=== PATIENT | female | born 1970 | race Caucasian/White ===

== ENCOUNTER 2019-10-01 10:56 | Emergency (ER) | payer MEDICAID ==
[~2019-10-01 10:56] MED LIST: ALBU18HF2 INH; ALBU8.5H8 IH; AZIT250T13 PO; BACL10TA PO; CYCL-1 PO; GUAI120015 PO; HYDR-4383 PO; IBUP-1986 PO; ORPH100T2 PO; SERT-153 PO
--- NOTE | 2019-10-01 12:27 | NUR ---
NIL x3 at [phone]
== END 2019-10-01 12:56 | disposition left against medical advice (07) ==
LOC: ER 10:59
DX: R10.9 Unspecified abdominal pain (principal); Z53.21 Procedure and treatment not carried out due to patient leaving prior to being seen by health care provider

== ENCOUNTER 2019-10-03 08:28 | Emergency (ER) | payer MEDICAID ==
[~2019-10-03] VITALS: Ht 157.5 cm; Wt 86.8 kg
[2019-10-03 08:35] VITALS: BP 145/100
[2019-10-03] MEDS ORDERED: LIDOcaine 5% patch TP SCH (09:18)
[2019-10-03] MEDS ORDERED: LIDO700A32 TOP (09:18)
[2019-10-03] MEDS ORDERED: ACET-1025 PO (09:18)
== END 2019-10-03 09:31 | disposition home or self-care (01) ==
LOC: ER 08:28
DX: S46.811A Strain of other muscles, fascia and tendons at shoulder and upper arm level, right arm, initial encounter (principal); G89.29 Other chronic pain; F41.9 Anxiety disorder, unspecified; F32.9 Major depressive disorder, single episode, unspecified; Z86.14 Personal history of Methicillin resistant Staphylococcus aureus infection; Z88.0 Allergy status to penicillin; Z88.8 Allergy status to other drugs, medicaments and biological substances; Z79.899 Other long term (current) drug therapy; Y04.8XXA Assault by other bodily force, initial encounter; Y93.89 Activity, other specified; Y92.89 Other specified places as the place of occurrence of the external cause; Y99.8 Other external cause status
CPT/HCPCS: 99283

== ENCOUNTER 2019-12-09 05:35 | Emergency (ER) | payer MEDICAID ==
[~2019-12-09] VITALS: Ht 157.5 cm; Wt 85.0 kg
[~2019-12-09 05:35] MED LIST changes: +ACET-1025 PO; +LIDO700A32 TOP
[2019-12-09] MEDS ORDERED: HYDROcodone/acetaminophen 5mg/325mg tablet PO ONE (06:30)
[2019-12-09] MEDS ORDERED: HYDR-3965 PO (07:11)
[2019-12-09 07:24] VITALS: BP 163/123
== END 2019-12-09 07:25 | disposition home or self-care (01) ==
LOC: ER 05:36
DX: S22.42XA Multiple fractures of ribs, left side, initial encounter for closed fracture (principal); G89.29 Other chronic pain; F41.9 Anxiety disorder, unspecified; F32.9 Major depressive disorder, single episode, unspecified; Z86.14 Personal history of Methicillin resistant Staphylococcus aureus infection; F12.90 Cannabis use, unspecified, uncomplicated; Z98.51 Tubal ligation status; Z98.890 Other specified postprocedural states; Z88.0 Allergy status to penicillin; Z88.6 Allergy status to analgesic agent; Z79.899 Other long term (current) drug therapy; X58.XXXA Exposure to other specified factors, initial encounter; Y93.89 Activity, other specified; Y92.89 Other specified places as the place of occurrence of the external cause; Y99.8 Other external cause status
CPT/HCPCS: 71101; 99283

== ENCOUNTER 2019-12-27 11:59 | Emergency (ER) | payer MEDICAID ==
[~2019-12-27] VITALS: Ht 157.5 cm; Wt 87.7 kg
[2019-12-27] MEDS ORDERED: APIX2.5T PO (12:49)
[2019-12-27] MEDS ORDERED: HYDROcodone/acetaminophen 5mg/325mg tablet PO ONE (12:50)
[2019-12-27] MEDS ORDERED: ketorolac trometh inj. 60 MG/2 ML VIAL IM ONE (12:50)
[2019-12-27] MEDS ORDERED: ACET-3067 PO (13:11)
[2019-12-27] MEDS ORDERED: CYCL-1 PO (13:11)
[2019-12-27 13:18] VITALS: BP 136/94
== END 2019-12-27 13:12 | disposition home or self-care (01) ==
LOC: ER 11:59
DX: R07.81 Pleurodynia (principal); M54.2 Cervicalgia; I48.91 Unspecified atrial fibrillation; G89.29 Other chronic pain; F41.9 Anxiety disorder, unspecified; F32.9 Major depressive disorder, single episode, unspecified; F12.90 Cannabis use, unspecified, uncomplicated; Z98.51 Tubal ligation status; Z98.890 Other specified postprocedural states; Z88.6 Allergy status to analgesic agent; Z88.0 Allergy status to penicillin; Z79.01 Long term (current) use of anticoagulants; Z79.2 Long term (current) use of antibiotics; Z79.899 Other long term (current) drug therapy
CPT/HCPCS: 96372; 99283; J1885

== ENCOUNTER 2020-01-23 06:22 | Emergency (ER) | payer MEDICAID ==
[~2020-01-23] VITALS: Ht 157.5 cm; Wt 85.0 kg
[~2020-01-23 06:22] MED LIST changes: +APIX2.5T PO
[2020-01-23 07:10] LABS: BASOPHILS # (AUTO) 0.1 X10'3 (0-0.2); EOSINOPHILS # (AUTO) 0.1 X10'3 (0-0.9); EOSINOPHILS % (AUTO) 0.6 % (0-6); HEMATOCRIT 41.5 % (35.0-45.0); HEMOGLOBIN 13.5 g/dl (12.0-16.0); LYMPHOCYTES # (AUTO) 2.8 X10'3 (1.1-4.8); LYMPHOCYTES % (AUTO) 19.6 % (21-51); MEAN CORPUSCULAR HGB CONC 32.5 g/dL (33.0-36.5); MEAN CORPUSCULAR VOLUME 95.4 FL (78-98); MEAN PLATELET VOLUME 8.3 FL (7.4-10.4); MONOCYTES # (AUTO) 1.2 X10'3 (0-0.9); NEUTROPHILS # (AUTO) 10.3 X10'3 (1.8-7.7); NEUTROPHILS % (AUTO) 70.8 % (42-75); PLATELET COUNT 327 X10'3 (140-440); RED BLOOD COUNT 4.35 X10'6 (4.20-5.60); RED CELL DISTRIBUTION WIDTH 17.7 % (11.5-14.5); WHITE BLOOD COUNT 14.5 X10'3 (4.5-11.0)
[2020-01-23 07:12] LABS: CLARITY,URINE CLOUDY (Clear); COLOR,URINE YELLOW (Yellow); GLUCOSE, URINE NEGATIVE (Neg); KETONES,URINE TRACE mg/dl (Neg); LEUKOCYTE ESTERASE ,URINE NEGATIVE (Neg); NITRITES, URINE NEGATIVE (Neg); OCCULT BLOOD,URINE NEGATIVE (Neg); PROTEIN,URINE 30 mg/dl (Neg); UROBILINOGEN,URINE >=8.0 E.U/dL (0.2-1.0)
[2020-01-23 07:13] LABS: UA COLLECTION TYPE CLN CATCH MIDSTREAM
[2020-01-23 07:15] LABS: URINE HCG NEGATIVE (NEG)
[2020-01-23 07:30] LABS: RBC,URINE 0-2 /HPF (0-2); WBC,URINE 0-4 /HPF (0-4)
[2020-01-23 07:30] LABS: ALANINE AMINOTRANSFERASE 76 U/L (12-78); ALBUMIN 1.6 G/DL (3.4-5.0); ANION GAP 8 (8-16); ASPARTATE AMINO TRANSFERASE 297 U/L (10-37); BILIRUBIN,TOTAL 5.4 MG/DL (0.1-1.0); BLOOD UREA NITROGEN 13 MG/DL (7-18); BUN/CREATININE RATIO 14.1 (6.6-38.0); CALCIUM 9.5 MG/DL (8.5-10.1); CHLORIDE 102 MMOL/L (99-107); CREATININE 0.92 MG/DL (0.40-0.90); GLUCOSE 93 MG/DL (70-104); LIPASE 164 U/L (73-393); SODIUM 138 MMOL/L (135-145); TOTAL CARBON DIOXIDE 27.8 MMOL/L (24-32); eGFR 65 ML/MIN
[2020-01-23 07:31] LABS: BACTERIA,URINE NONE SEEN /HPF (Neg); MUCUS STRANDS MODERATE /LPF (Neg); SQUAMOUS EPITHELIAL CELL,UR MODERATE /LPF (FEW)
[2020-01-23 07:35] LABS: POTASSIUM 3.7 MMOL/L (3.5-5.1)
[2020-01-23 07:45] LABS: ALBUMIN/GLOBULIN RATIO 0.2 (1.1-1.5); TOTAL PROTEIN 8.2 G/DL (6.4-8.2)
[2020-01-23 07:46] LABS: ALKALINE PHOSPHATASE 1101 IU/L (46-116)
[2020-01-23 08:13] LABS: ANISOCYTOSIS 1+; PLATELET ESTIMATE NORMAL; TOTAL CELLS COUNTED 100
[2020-01-23 08:14] LABS: POLYCHROMASIA 1+; STOMATOCYTES 2+
[2020-01-23] MEDS ORDERED: OXYC-658 PO (08:30)
[2020-01-23] MEDS ORDERED: FURO-150 PO (08:30)
[2020-01-23 08:47] VITALS: BP 140/90
== END 2020-01-23 08:47 | disposition home or self-care (01) ==
LOC: ER 06:22
DX: K74.60 Unspecified cirrhosis of liver (principal); R18.8 Other ascites; R10.9 Unspecified abdominal pain; R14.0 Abdominal distension (gaseous); I48.91 Unspecified atrial fibrillation; G89.29 Other chronic pain; F41.9 Anxiety disorder, unspecified; F32.9 Major depressive disorder, single episode, unspecified; F12.90 Cannabis use, unspecified, uncomplicated; Z86.14 Personal history of Methicillin resistant Staphylococcus aureus infection; Z98.51 Tubal ligation status; Z98.890 Other specified postprocedural states; Z88.6 Allergy status to analgesic agent; Z88.0 Allergy status to penicillin; Z79.2 Long term (current) use of antibiotics; Z79.899 Other long term (current) drug therapy
CPT/HCPCS: 36415; 80053; 81001; 81025; 83690; 85025; 99284

== ENCOUNTER 2020-02-14 12:16 | Inpatient (IN) | payer MEDICAID ==
[~2020-02-14] VITALS: Ht 157.5 cm; Wt 91.3 kg
[~2020-02-14 12:16] MED LIST changes: +FURO-150 PO; +OXYC-658 PO
[2020-02-14] MEDS ORDERED: normal saline 1000ML IV soln IVB ONE ×2 (12:30→13:55)
[2020-02-14 13:12] LABS: BASOPHILS # (AUTO) 0.1 X10'3 (0-0.2); BASOPHILS % (AUTO) 0.4 % (0-1); EOSINOPHILS # (AUTO) 0.1 X10'3 (0-0.9); EOSINOPHILS % (AUTO) 0.4 % (0-6); HEMATOCRIT 42.5 % (35.0-45.0); HEMOGLOBIN 13.8 g/dl (12.0-16.0); LYMPHOCYTES # (AUTO) 2.2 X10'3 (1.1-4.8); LYMPHOCYTES % (AUTO) 12.3 % (21-51); MEAN CORPUSCULAR HEMOGLOBIN 30.9 PG (27.0-31.0); MEAN CORPUSCULAR HGB CONC 32.5 g/dL (33.0-36.5); MEAN CORPUSCULAR VOLUME 95.2 FL (78-98); MONOCYTES # (AUTO) 1.1 X10'3 (0-0.9); MONOCYTES % (AUTO) 6.1 % (2-12); NEUTROPHILS # (AUTO) 14.4 X10'3 (1.8-7.7); NEUTROPHILS % (AUTO) 80.8 % (42-75); PLATELET COUNT 163 X10'3 (140-440); RED BLOOD COUNT 4.47 X10'6 (4.20-5.60); RED CELL DISTRIBUTION WIDTH 17.7 % (11.5-14.5); WHITE BLOOD COUNT 17.8 X10'3 (4.5-11.0)
[2020-02-14 13:29] LABS: ALANINE AMINOTRANSFERASE 61 U/L (12-78); ALBUMIN 1.1 G/DL (3.4-5.0); ALKALINE PHOSPHATASE 671 IU/L (46-116); ANION GAP 12 (8-16); BILIRUBIN,TOTAL 9.3 MG/DL (0.1-1.0); BLOOD UREA NITROGEN 59 MG/DL (7-18); BUN/CREATININE RATIO 33.1 (6.6-38.0); CHLORIDE 93 MMOL/L (99-107); CREATININE 1.78 MG/DL (0.40-0.90); ETHANOL < 0.010 GM/DL (0.0-0.010); GLUCOSE 71 MG/DL (70-104); LACTIC SEPSIS 2.9 MMOL/L (0.4-2.0); MAGNESIUM 2.7 MG/DL (1.5-2.4); SODIUM 130 MMOL/L (135-145); TOTAL CARBON DIOXIDE 24.6 MMOL/L (24-32); eGFR 30 ML/MIN
[2020-02-14 13:33] LABS: ALBUMIN/GLOBULIN RATIO 0.2 (1.1-1.5); ASPARTATE AMINO TRANSFERASE 272 U/L (10-37); POTASSIUM 4.7 MMOL/L (3.5-5.1); TOTAL PROTEIN 7.4 G/DL (6.4-8.2)
[2020-02-14] MEDS ORDERED: metroNIDAZOLE-Flagyl 750mg/NS 150 ML IV SCH (13:55)
[2020-02-14] MEDS ORDERED: lactulose 20gm/30ml cup PO ONE (13:55)
[2020-02-14] MEDS ORDERED: CefTRIAXone/D5W-Rocephin 1gm 50 ML IV ONE (13:55)
[2020-02-14] MEDS ORDERED: NO HOME MEDS (14:12)
[2020-02-14 14:22] LABS: ANISOCYTOSIS 1+; PLATELET ESTIMATE NORMAL; TOTAL CELLS COUNTED 100
[2020-02-14] MEDS ORDERED: lactulose 20gm/30ml cup ONE (14:25)
[2020-02-14 14:26] LABS: TOXIC VACUOLATION 1+
[2020-02-14 14:28] LABS: HYPOCHROMASIA 1+; POLYCHROMASIA 1+; TARGET CELLS FEW
[2020-02-14 14:31] LABS: ROULEAUX 2+; STOMATOCYTES FEW
[2020-02-14 14:32] LABS: SMUDGE CELLS 1+; SPHEROCYTES FEW
[2020-02-14] MEDS ORDERED: magnesium hydroxide 30ml (MOM) UD suspension PO PRN (15:00)
[2020-02-14] MEDS ORDERED: magnesium 2GM in 50ml NS 50 ML IV PRN (15:00)
[2020-02-14] MEDS ORDERED: HYDROcodone/acetaminophen 10/325mg tab PO PRN (15:00)
[2020-02-14] MEDS ORDERED: potassium CL 10mEq/100ml bag 100 ML IV PRN ×2 (15:00)
[2020-02-14] MEDS ORDERED: bisacodyl 10mg suppository rectal RC PRN (15:00)
[2020-02-14] MEDS ORDERED: magnesium Cl slow-release 64mg tablet PO PRN (15:00)
[2020-02-14] MEDS ORDERED: potassium Cl 20 mEq SR tablet PO PRN ×2 (15:00)
[2020-02-14] MEDS ORDERED: acetaminophen 325mg tablet PO PRN ×2 (15:00)
[2020-02-14] MEDS ORDERED: HYDROcodone/acetaminophen 5mg/325mg tablet PO PRN (15:00)
[2020-02-14] MEDS ORDERED: mag hydrox/Alum hydrox/simeth 30ml oral suspension PO PRN (15:00)
[2020-02-14] MEDS ORDERED: ondansetron/PF 4mg/2ml inj IV PRN (15:00)
[2020-02-14] MEDS ORDERED: metoclopramide 5 mg/ml inj IV PRN (15:00)
[2020-02-14] MEDS ORDERED: magnesium 4gm in 100ml NS 100 ML IV PRN (15:00)
[2020-02-14] MEDS: normal saline 1000ml 1,000 ML IV SCH ×2 (15:24→16:46)
--- NOTE | 2020-02-14 16:04 | NUR ---
US tech at bedside.
--- NOTE | 2020-02-14 16:21 | NUR ---
Received report from DANAE Mueller in the ED. Patient will be going into room 345 B.
[2020-02-14 16:46] LABS: HIV ANTIBODY 1&2 RAPID NON-REACTIVE (Neg)
[2020-02-14 16:52] VITALS: BP 101/59
--- NOTE | 2020-02-14 18:05 | NUR ---
Problems reprioritized. Patient report given, questions answered & plan of care reviewed with DANAE Dietrich.
--- NOTE | 2020-02-14 18:15 | NUR ---
Patient in room [facility]. I have received report from Silvia FINK and had the opportunity to ask questions and assume patient care.
[2020-02-14] MEDS: lactulose 20gm/30ml cup PO SCH (19:29)
[2020-02-14] MEDS: K and/or MAG REPLACEMENT MC SCH (19:39)
[2020-02-14 20:00] VITALS: BP 100/59
[2020-02-14] MEDS ORDERED: temazepam 15mg capsule PO PRN (21:00)
[2020-02-14] MEDS: metroNIDAZOLE-Flagyl 500mg/NS 100 ML IV SCH (22:44)
[2020-02-15] VITALS (15 sets, daily range): BP systolic 86–129; BP diastolic 57–77
[2020-02-15] MEDS: lactulose 20gm/30ml cup PO SCH ×4 (02:01→19:19)
[2020-02-15] MEDS: metroNIDAZOLE-Flagyl 500mg/NS 100 ML IV SCH ×3 (03:29→21:40)
[2020-02-15 05:16] LABS: BASOPHILS # (AUTO) 0.1 X10'3 (0-0.2); BASOPHILS % (AUTO) 0.4 % (0-1); EOSINOPHILS % (AUTO) 0.2 % (0-6); LYMPHOCYTES # (AUTO) 1.8 X10'3 (1.1-4.8); LYMPHOCYTES % (AUTO) 10.9 % (21-51); MEAN CORPUSCULAR HGB CONC 32.6 g/dL (33.0-36.5); MEAN CORPUSCULAR VOLUME 95.1 FL (78-98); MEAN PLATELET VOLUME 7.8 FL (7.4-10.4); MONOCYTES # (AUTO) 1.2 X10'3 (0-0.9); MONOCYTES % (AUTO) 7.5 % (2-12); NEUTROPHILS # (AUTO) 13.2 X10'3 (1.8-7.7); PLATELET COUNT 159 X10'3 (140-440); RED CELL DISTRIBUTION WIDTH 17.6 % (11.5-14.5); WHITE BLOOD COUNT 16.2 X10'3 (4.5-11.0)
[2020-02-15 05:26] LABS: ALANINE AMINOTRANSFERASE 52 U/L (12-78); ALKALINE PHOSPHATASE 629 IU/L (46-116); ANION GAP 9 (8-16); ASPARTATE AMINO TRANSFERASE 288 U/L (10-37); BILIRUBIN,TOTAL 8.9 MG/DL (0.1-1.0); BLOOD UREA NITROGEN 60 MG/DL (7-18); BUN/CREATININE RATIO 31.4 (6.6-38.0); CALCIUM 9.4 MG/DL (8.5-10.1); CHLORIDE 100 MMOL/L (99-107); CREATININE 1.91 MG/DL (0.40-0.90); GLUCOSE 96 MG/DL (70-104); MAGNESIUM 2.7 MG/DL (1.5-2.4); SODIUM 134 MMOL/L (135-145); TOTAL CARBON DIOXIDE 25.5 MMOL/L (24-32); eGFR 28 ML/MIN
[2020-02-15 05:27] LABS: ALBUMIN/GLOBULIN RATIO 0.2 (1.1-1.5); PHOSPHORUS 4.8 MG/DL (2.3-4.5); POTASSIUM 4.4 MMOL/L (3.5-5.1); TOTAL PROTEIN 6.9 G/DL (6.4-8.2)
--- NOTE | 2020-02-15 06:14 | NUR ---
Problems reprioritized. Patient report given, questions answered & plan of care reviewed with Aziza FINK.
[2020-02-15] MEDS: CefTRIAXone/D5W-Rocephin 1gm 50 ML IV SCH (07:52)
[2020-02-15] MEDS: K and/or MAG REPLACEMENT MC SCH ×2 (07:55→19:26)
[2020-02-15] MEDS: normal saline 1000ml 1,000 ML IV SCH ×2 (08:03→15:23)
--- NOTE | 2020-02-15 11:01 | NUR ---
PAGER ID: [phone] MESSAGE: [phone] Domo P : Radiologist called and would like you to read CT report ARELI. thank you! - Aziza [id number]
--- NOTE | 2020-02-15 15:31 | NUR ---
Picked up by [facility] RN's
[2020-02-15] MEDS ORDERED: fentaNYL/PF 50MCG/1 ML 2ML syringe ONE (15:35)
--- NOTE | 2020-02-15 16:15 | NUR ---
Patient back from [facility]. VSS. no complaints. resting comfortably in bed.
--- NOTE | 2020-02-15 18:13 | NUR ---
Problems reprioritized. Patient report given, questions answered & plan of care reviewed with DANAE Dietrich.
--- NOTE | 2020-02-15 18:26 | NUR ---
Patient in room [facility]. I have received report from Aziza FINK and had the opportunity to ask questions and assume patient care.
[2020-02-15] MEDS: lactobacillus rhamnosus 10,000 MMU CELLS/CAPSULE PO SCH (19:19)
--- NOTE | 2020-02-15 19:25 | NUR ---
Mixed lactulose with apple juice and patient only drank half then refused anymore
--- NOTE | 2020-02-15 23:23 | NUR ---
paged Dr Reid to let him know the patient was sating at 90% on 4 liters. He said to order breathing treatments and its fine for her to be around 90%
[2020-02-16 00:23] VITALS: BP 98/62
[2020-02-16] MEDS: lactulose 20gm/30ml cup PO SCH ×4 (02:24→20:54)
--- NOTE | 2020-02-16 02:27 | NUR ---
patient only took a few sips of the lactulose then refused the rest. I educated her on how important the medication was and she still refused
[2020-02-16] MEDS: metroNIDAZOLE-Flagyl 500mg/NS 100 ML IV SCH ×3 (03:29→22:19)
[2020-02-16] MEDS: normal saline 1000ml 1,000 ML IV SCH ×2 (03:35→15:00)
[2020-02-16 05:46] LABS: BASOPHILS % (AUTO) 0.1 % (0-1); EOSINOPHILS # (AUTO) 0.1 X10'3 (0-0.9); EOSINOPHILS % (AUTO) 0.4 % (0-6); HEMATOCRIT 41.5 % (35.0-45.0); HEMOGLOBIN 13.4 g/dl (12.0-16.0); LYMPHOCYTES # (AUTO) 2.2 X10'3 (1.1-4.8); LYMPHOCYTES % (AUTO) 14.9 % (21-51); MEAN CORPUSCULAR HEMOGLOBIN 31.2 PG (27.0-31.0); MEAN CORPUSCULAR HGB CONC 32.3 g/dL (33.0-36.5); MEAN CORPUSCULAR VOLUME 96.7 FL (78-98); MEAN PLATELET VOLUME 7.8 FL (7.4-10.4); MONOCYTES # (AUTO) 0.9 X10'3 (0-0.9); MONOCYTES % (AUTO) 6.2 % (2-12); NEUTROPHILS # (AUTO) 11.8 X10'3 (1.8-7.7); NEUTROPHILS % (AUTO) 78.4 % (42-75); PLATELET COUNT 133 X10'3 (140-440); RED BLOOD COUNT 4.29 X10'6 (4.20-5.60); RED CELL DISTRIBUTION WIDTH 18.3 % (11.5-14.5)
[2020-02-16 06:17] LABS: ALANINE AMINOTRANSFERASE 57 U/L (12-78); ALKALINE PHOSPHATASE 599 IU/L (46-116); ANION GAP 13 (8-16); ASPARTATE AMINO TRANSFERASE 328 U/L (10-37); BILIRUBIN,TOTAL 8.2 MG/DL (0.1-1.0); BLOOD UREA NITROGEN 69 MG/DL (7-18); BUN/CREATININE RATIO 28.5 (6.6-38.0); CALCIUM 9.3 MG/DL (8.5-10.1); CHLORIDE 103 MMOL/L (99-107); CREATININE 2.42 MG/DL (0.40-0.90); GLUCOSE 83 MG/DL (70-104); MAGNESIUM 2.8 MG/DL (1.5-2.4); SODIUM 138 MMOL/L (135-145); TOTAL CARBON DIOXIDE 22.4 MMOL/L (24-32); eGFR 21 ML/MIN
[2020-02-16 06:18] LABS: ALBUMIN/GLOBULIN RATIO 0.2 (1.1-1.5); PHOSPHORUS 5.3 MG/DL (2.3-4.5); POTASSIUM 4.5 MMOL/L (3.5-5.1); TOTAL PROTEIN 6.8 G/DL (6.4-8.2)
--- NOTE | 2020-02-16 06:19 | NUR ---
Problems reprioritized. Patient report given, questions answered & plan of care reviewed with Aziza FINK.
[2020-02-16 07:07] LABS: TOTAL CELLS COUNTED 100
[2020-02-16 07:08] LABS: ANISOCYTOSIS 2+; PLATELET ESTIMATE DECREASED
[2020-02-16 07:09] LABS: LARGE PLATELETS FEW; POLYCHROMASIA 1+
[2020-02-16] MEDS: lactobacillus rhamnosus 10,000 MMU CELLS/CAPSULE PO SCH ×2 (07:23→20:00)
[2020-02-16] MEDS: CefTRIAXone/D5W-Rocephin 1gm 50 ML IV SCH (07:23)
[2020-02-16] MEDS: K and/or MAG REPLACEMENT MC SCH ×2 (07:32→20:00)
[2020-02-16 07:35] VITALS: BP 91/58
[2020-02-16 11:20] LABS: HBSAG SCREEN Negative (Negative); HEP A AB, IGM Negative (Negative); HEPATITIS C ANTIBODY <0.1 s/co ratio (0.0-0.9)
[2020-02-16 11:37] VITALS: BP 110/67
--- NOTE | 2020-02-16 18:24 | NUR ---
Problems reprioritized. Patient report given, questions answered & plan of care reviewed with DANAE VILLALOBOS.
--- NOTE | 2020-02-16 18:49 | NUR ---
Patient in room [facility]. I have received report from Aziza FINK and had the opportunity to ask questions and assume patient care.
[2020-02-16 20:00] VITALS: BP 102/62
[2020-02-17] VITALS: BP 96/62
[2020-02-17] MEDS: lactulose 20gm/30ml cup PO SCH ×4 (02:13→20:33)
[2020-02-17] MEDS: normal saline 1000ml 1,000 ML IV SCH ×3 (02:13→22:56)
[2020-02-17] MEDS: metroNIDAZOLE-Flagyl 500mg/NS 100 ML IV SCH ×3 (03:32→22:17)
[2020-02-17 05:26] LABS: BASOPHILS # (AUTO) 0.1 X10'3 (0-0.2); BASOPHILS % (AUTO) 0.4 % (0-1); EOSINOPHILS % (AUTO) 0.1 % (0-6); HEMATOCRIT 40.4 % (35.0-45.0); HEMOGLOBIN 13.1 g/dl (12.0-16.0); LYMPHOCYTES # (AUTO) 2.4 X10'3 (1.1-4.8); MEAN CORPUSCULAR HEMOGLOBIN 31.4 PG (27.0-31.0); MEAN CORPUSCULAR HGB CONC 32.3 g/dL (33.0-36.5); MEAN CORPUSCULAR VOLUME 97.2 FL (78-98); MEAN PLATELET VOLUME 7.9 FL (7.4-10.4); MONOCYTES # (AUTO) 1.1 X10'3 (0-0.9); MONOCYTES % (AUTO) 6.6 % (2-12); NEUTROPHILS # (AUTO) 12.6 X10'3 (1.8-7.7); NEUTROPHILS % (AUTO) 77.9 % (42-75); PLATELET COUNT 140 X10'3 (140-440); RED BLOOD COUNT 4.16 X10'6 (4.20-5.60); RED CELL DISTRIBUTION WIDTH 17.9 % (11.5-14.5); WHITE BLOOD COUNT 16.2 X10'3 (4.5-11.0)
[2020-02-17 05:37] LABS: ALANINE AMINOTRANSFERASE 54 U/L (12-78); ALKALINE PHOSPHATASE 597 IU/L (46-116); ANION GAP 12 (8-16); ASPARTATE AMINO TRANSFERASE 404 U/L (10-37); BILIRUBIN,TOTAL 7.7 MG/DL (0.1-1.0); BLOOD UREA NITROGEN 75 MG/DL (7-18); CALCIUM 9.2 MG/DL (8.5-10.1); CHLORIDE 106 MMOL/L (99-107); CREATININE 2.42 MG/DL (0.40-0.90); GLUCOSE 71 MG/DL (70-104); MAGNESIUM 2.8 MG/DL (1.5-2.4); SODIUM 139 MMOL/L (135-145); TOTAL CARBON DIOXIDE 21.3 MMOL/L (24-32); eGFR 21 ML/MIN
[2020-02-17 05:40] LABS: ALBUMIN/GLOBULIN RATIO 0.2 (1.1-1.5); PHOSPHORUS 5.3 MG/DL (2.3-4.5); POTASSIUM 4.2 MMOL/L (3.5-5.1)
--- NOTE | 2020-02-17 06:23 | NUR ---
Problems reprioritized. Patient report given, questions answered & plan of care reviewed with Aziza FINK.
--- NOTE | 2020-02-17 06:30 | NUR ---
Pt daughter Vinita called last night and wanted update on pt. I was in with other pts at the time. I did not want to call the daughter back at 2230 as it was late and daughter did not call back.
[2020-02-17 06:58] LABS: TOTAL CELLS COUNTED 100
[2020-02-17 06:59] LABS: ANISOCYTOSIS 1+; PLATELET ESTIMATE NORMAL
[2020-02-17 07:01] LABS: LARGE PLATELETS FEW
[2020-02-17 07:45] VITALS: BP 100/60
[2020-02-17] MEDS: K and/or MAG REPLACEMENT MC SCH ×2 (08:00→20:00)
[2020-02-17] MEDS: lactobacillus rhamnosus 10,000 MMU CELLS/CAPSULE PO SCH ×2 (08:07→20:35)
[2020-02-17] MEDS: CefTRIAXone/D5W-Rocephin 1gm 50 ML IV SCH (08:07)
--- NOTE | 2020-02-17 11:32 | NUR ---
Malnutrition consult: Unsure of wt loss however decreased appetite per malnutrition risk screen with RN. Current scaled weight is stable with weight hx. Pt with no documented significant decrease in muscle strength or edema. Pt appears well developed, well nourished per H&P. Pt currently lacks a minimum of two criteria for malnutrition. Pt on a heart healthy diet, mechanical soft grind all per ST recs following BSS, documented with 0-25% PO intake not meeting nutrient needs. Noted that pt documented as confused and A/O x 2, receiving assistance with meals. D/w dietary to trial peach smoothie q breakfast and strawberry smoothie q dinner to optimize PO intake. LBM 02/16 documented as diarrhea, receiving routine Lactulose. Will continue to follow closely and monitor need for further nutrition intervention. Addendum: 02/17/20 at [address] Amended: Links added.
[2020-02-17 12:00] VITALS: BP 101/59
--- NOTE | 2020-02-17 13:26 | NUR ---
PICKED UP FOR CT SCAN
[2020-02-17 15:38] LABS: AFP,SERUM, TUMOR MARKER 1.8 ng/mL (0.0-8.3)
--- NOTE | 2020-02-17 18:14 | NUR ---
Problems reprioritized. Patient report given, questions answered & plan of care reviewed with DANAE PANIAGUA.
--- NOTE | 2020-02-17 19:53 | NUR ---
Patient in room [facility]. I have received report from Aziza FINK and had the opportunity to ask questions and assume patient care.
[2020-02-17 20:00] VITALS: BP 90/50
[2020-02-17 22:43] VITALS: BP 93/53
[2020-02-18] VITALS: BP 95/54
[2020-02-18] MEDS: lactulose 20gm/30ml cup PO SCH ×2 (01:54→08:00)
[2020-02-18] MEDS: normal saline 1000ml 1,000 ML IV SCH (01:54)
[2020-02-18] MEDS: metroNIDAZOLE-Flagyl 500mg/NS 100 ML IV SCH (04:02)
[2020-02-18 06:14] LABS: HEMOGLOBIN 11.9 g/dl (12.0-16.0); MEAN CORPUSCULAR HEMOGLOBIN 31.3 PG (27.0-31.0); MEAN CORPUSCULAR HGB CONC 32.2 g/dL (33.0-36.5); MONOCYTES # (AUTO) 1.2 X10'3 (0-0.9); RED BLOOD COUNT 3.81 X10'6 (4.20-5.60)
[2020-02-18 06:16] LABS: BASOPHILS % (AUTO) 0.1 % (0-1); EOSINOPHILS # (AUTO) 0.1 X10'3 (0-0.9); EOSINOPHILS % (AUTO) 0.3 % (0-6); HEMATOCRIT 36.9 % (35.0-45.0); LYMPHOCYTES # (AUTO) 2.8 X10'3 (1.1-4.8); LYMPHOCYTES % (AUTO) 16.3 % (21-51); MONOCYTES % (AUTO) 6.9 % (2-12); NEUTROPHILS # (AUTO) 13.3 X10'3 (1.8-7.7); NEUTROPHILS % (AUTO) 76.4 % (42-75); PLATELET COUNT 124 X10'3 (140-440); RED CELL DISTRIBUTION WIDTH 18.1 % (11.5-14.5); WHITE BLOOD COUNT 17.4 X10'3 (4.5-11.0)
[2020-02-18 06:20] LABS: ALANINE AMINOTRANSFERASE 57 U/L (12-78); ALBUMIN 0.9 G/DL (3.4-5.0); ALKALINE PHOSPHATASE 517 IU/L (46-116); ANION GAP 13 (8-16); ASPARTATE AMINO TRANSFERASE 440 U/L (10-37); BILIRUBIN,TOTAL 6.9 MG/DL (0.1-1.0); BLOOD UREA NITROGEN 87 MG/DL (7-18); BUN/CREATININE RATIO 28.5 (6.6-38.0); CALCIUM 8.9 MG/DL (8.5-10.1); CHLORIDE 109 MMOL/L (99-107); CREATININE 3.05 MG/DL (0.40-0.90); GLUCOSE 71 MG/DL (70-104); MAGNESIUM 2.9 MG/DL (1.5-2.4); SODIUM 141 MMOL/L (135-145); TOTAL CARBON DIOXIDE 18.7 MMOL/L (24-32); eGFR 16 ML/MIN
[2020-02-18 06:21] LABS: ALBUMIN/GLOBULIN RATIO 0.2 (1.1-1.5); PHOSPHORUS 5.5 MG/DL (2.3-4.5); POTASSIUM 4.7 MMOL/L (3.5-5.1); TOTAL PROTEIN 6.3 G/DL (6.4-8.2)
--- NOTE | 2020-02-18 06:46 | NUR ---
Patient in room [facility]. I have received report from DANAE Pham and had the opportunity to ask questions and assume patient care.
--- NOTE | 2020-02-18 06:48 | NUR ---
Problems reprioritized. Patient report given, questions answered & plan of care reviewed with Susy FINK.
[2020-02-18 07:25] LABS: NUCLEATED RED BLOOD CELLS 1 /100WBC (0-0); TOTAL CELLS COUNTED 100
[2020-02-18 07:26] LABS: PLATELET ESTIMATE DECREASED
[2020-02-18 07:30] LABS: ANISOCYTOSIS 2+; ROULEAUX 1+; TARGET CELLS FEW
[2020-02-18] MEDS: lactobacillus rhamnosus 10,000 MMU CELLS/CAPSULE PO SCH (08:00)
[2020-02-18] MEDS: K and/or MAG REPLACEMENT MC SCH (08:00)
[2020-02-18 08:27] VITALS: BP 86/46
[2020-02-18] MEDS: CefTRIAXone/D5W-Rocephin 1gm 50 ML IV SCH (08:47)
[2020-02-18] MEDS ORDERED: morphine 10mg/0.5ml (conc. morphine) oral syringe PO PRN (09:20)
[2020-02-18] MEDS ORDERED: morphine 10mg/ml inj. IV PRN ×3 (09:20→21:56)
[2020-02-18] MEDS ORDERED: LORazepam 2 mg/ml vial IV PRN (09:20)
[2020-02-18] MEDS ORDERED: acetaminophen 325mg tablet PO PRN (09:20)
--- NOTE | 2020-02-18 09:20 | NUR ---
Dr Wall undated Pt's daughter Lori on Pt's condition. It was decided to make Pt a DNR w/comfort care. Lori and her Sister will be in to see their mother on Friday at 1000. Nursing caddy/caddie supervisor being notified to make arrangements.
--- NOTE | 2020-02-18 17:58 | NUR ---
Problems reprioritized. Patient report given, questions answered & plan of care reviewed with DANAE Pham.
[2020-02-18 18:00] VITALS: BP 76/42
--- NOTE | 2020-02-18 18:38 | NUR ---
Patient in room [facility]. I have received report from Susy FINK and had the opportunity to ask questions and assume patient care.
[2020-02-18] MEDS ORDERED: morphine 5 MG/ML injection IV PRN (21:45)
--- NOTE | 2020-02-18 23:50 | NUR ---
RN IS TO DOCUMENT YES TO ALL APPLICABLE AREAS Pronouncement of : 2255 1. Time Physician Notified: [id number] 2. Date of : 02/18/2020 3. Time of : 2255 4. DNR/Withdraw life support documented: yes 5. Monitor strip has been placed on chart: yes 6. Assessment process is of one-minute duration and includes following criteria: a) Patient is unresponsive to all stimuli: yes b) Pupils fixed and non-reactive: yes c) Auscultation of precordium reveals absence of heart tones: yes d) Auscultation of lungs reveals absence of breath sounds: yes e) Absence of blood pressure / all vital signs: yes f) QRS complexes are not present on monitor / EKG strip: yes g) Pacer spikes without capture: 4. Comments: notified- Dr. Moncada. Daughters Argenis and Briseida notified by phone. Daughters came in to say goodbye. belongings sent home with daughter. Donor network and [employer] house cook notified. body released to mortuary Trevor Chakraborty.
--- NOTE | 2020-02-19 02:30 | NUR ---
Pt body was release to Sarah in [place]
== END 2020-02-18 22:56 | disposition expired | DRG 720 ==
LOC: ER 12:16 → ED HOLD 14:56 → SUR 3N 16:37
PROVIDERS: ADMIT Family Medicine; ATTEND Family Medicine
PROC: 0FB23ZX Excision of Left Lobe Liver, Percutaneous Approach, Diagnostic (ICD-10-PCS; principal; 2020-02-15)
DX: A41.9 Sepsis, unspecified organism (principal); J18.9 Pneumonia, unspecified organism; I48.91 Unspecified atrial fibrillation; G93.41 Metabolic encephalopathy; E87.1 Hypo-osmolality and hyponatremia; E43 Unspecified severe protein-calorie malnutrition; C79.51 Secondary malignant neoplasm of bone; K72.90 Hepatic failure, unspecified without coma; K74.60 Unspecified cirrhosis of liver; N17.9 Acute kidney failure, unspecified; Z66 Do not resuscitate; F12.90 Cannabis use, unspecified, uncomplicated; F32.9 Major depressive disorder, single episode, unspecified; F41.9 Anxiety disorder, unspecified; G89.29 Other chronic pain; E83.39 Other disorders of phosphorus metabolism; E83.41 Hypermagnesemia; C22.7 Other specified carcinomas of liver; N18.9 Chronic kidney disease, unspecified; Z85.3 Personal history of malignant neoplasm of breast; Z87.442 Personal history of urinary calculi; Z98.891 History of uterine scar from previous surgery; Z98.51 Tubal ligation status; Z68.36 Body mass index [BMI] 36.0-36.9, adult
CPT/HCPCS: 36415; 47000; 70450; 71045; 74176; 76700; 80053; 80074; 80320; 82103; 82140; 82378; 83605; 83735; 84100; 84145; 85025; 85610; 86301; 86304; 86703; 87040; 87081; 92508; 92616; 93005; 94760; 97161; 97530; 97535; 99285; G0378; J0696; J2270; J3010; J3490; J7030